=== PATIENT | male | born 1965 | race Caucasian/White ===

== ENCOUNTER 2021-01-25 17:05 | Observation (INO) | payer OTHER ==
[~2021-01-25] VITALS: Ht 188 cm; Wt 86.2 kg
[2021-01-25 19:39] LABS: HEMOGLOBIN 17.2 gm/dl (14.0-17.5); RED BLOOD COUNT 4.72 M/UL (4.20-5.50); WHITE BLOOD COUNT 8.4 K/UL (4.5-11.0)
[2021-01-25 20:08] LABS: BUN/CREATININE RATIO 12 (0-10)
[2021-01-26] MEDS ORDERED: AMLODIPINE BES2.5 MG PO (13:17)
[2021-01-26] MEDS ORDERED: LOPRESSOR 25 MG25 MG PO (13:18)
[2021-01-26] MEDS ORDERED: VENTOLIN HFA 66.7 GM INH (13:19)
[2021-01-26] MEDS ORDERED: CLARITIN 10MG T10 MG PO (13:20)
[2021-01-26] MEDS ORDERED: ASPIRIN EC81 MG PO (13:20)
[2021-01-26] MEDS ORDERED: FLOMAX 0.4 MG0.4 MG PO (13:21)
[2021-01-26] MEDS ORDERED: OMEPRAZOLE20 MG PO (13:21)
[2021-01-26] MEDS ORDERED: FAMOTIDINE20 MG PO (13:21)
[2021-01-26] MEDS ORDERED: NITROGLYCERIN0.4 MG SL (13:22)
[2021-01-26] MEDS ORDERED: FLONASE 0.05% N16 GM (13:22)
[2021-01-26] MEDS ORDERED: SM COMPLETE SE1 EACH PO (13:23)
[2021-01-26 15:31] LABS: HEMOGLOBIN 16.8 gm/dl (14.0-17.5); RED BLOOD COUNT 4.68 M/UL (4.20-5.50); WHITE BLOOD COUNT 6.8 K/UL (4.5-11.0)
[2021-01-26 15:56] LABS: BUN/CREATININE RATIO 15 (0-10)
[2021-01-27 05:53] LABS: HEMOGLOBIN 16.7 gm/dl (14.0-17.5); RED BLOOD COUNT 4.69 M/UL (4.20-5.50); WHITE BLOOD COUNT 6.4 K/UL (4.5-11.0)
[2021-01-27 06:25] LABS: BUN/CREATININE RATIO 14 (0-10)
[2021-01-28 04:34] LABS: BUN/CREATININE RATIO 11 (0-10)
== END 2021-01-28 18:06 | disposition home or self-care (01) ==
LOC: ER1 17:05 → CDU 22:00 → M/S 01-26 09:12
PROVIDERS: Family Medicine; Internal Medicine; Physician Assistant; ADMIT Internal Medicine
PROC: 4A023N7 Measurement of Cardiac Sampling and Pressure, Left Heart, Percutaneous Approach (ICD-10-PCS; principal; 2021-01-27)
PROC: B2111ZZ Fluoroscopy of Multiple Coronary Arteries using Low Osmolar Contrast (ICD-10-PCS; 2021-01-27)
PROC: B2151ZZ Fluoroscopy of Left Heart using Low Osmolar Contrast (ICD-10-PCS; 2021-01-27)
DX: R07.89 Other chest pain (principal); R10.11 Right upper quadrant pain; I10 Essential (primary) hypertension; J44.9 Chronic obstructive pulmonary disease, unspecified; E11.9 Type 2 diabetes mellitus without complications; N20.0 Calculus of kidney; K21.9 Gastro-esophageal reflux disease without esophagitis; N40.0 Benign prostatic hyperplasia without lower urinary tract symptoms; Z85.028 Personal history of other malignant neoplasm of stomach; Z88.8 Allergy status to other drugs, medicaments and biological substances; Z87.891 Personal history of nicotine dependence; Z98.2 Presence of cerebrospinal fluid drainage device; Z79.899 Other long term (current) drug therapy; Z20.822 Contact with and (suspected) exposure to COVID-19
CPT/HCPCS: 36415; 71045; 76705; 78452; 80048; 80053; 80061; 82550; 82553; 83036; 83690; 83874; 84484; 85025; 93005; 93017; 94664; 99152; 99153; 99285; A9502; C1760; C1769; G0378; J0461; J1644; J1885; J2250; J2785; J3010; Q9963; Q9967; U0002

== ENCOUNTER → 2021-02-02 | Day surgery (SDC) | payer OTHER ==
[~2021-02-02] MED LIST: AMLODIPINE BES2.5 MG PO; ASPIRIN EC81 MG PO; CLARITIN 10MG T10 MG PO; FAMOTIDINE20 MG PO; FLOMAX 0.4 MG0.4 MG PO; FLONASE 0.05% N16 GM; LOPRESSOR 25 MG25 MG PO; NITROGLYCERIN0.4 MG SL; OMEPRAZOLE20 MG PO; SM COMPLETE SE1 EACH PO; VENTOLIN HFA 66.7 GM INH
== END | disposition home or self-care (01) ==
LOC: OR 06:54
PROVIDERS: Internal Medicine Gastroenterology
PROC: 0DBK8ZX Excision of Ascending Colon, Via Natural or Artificial Opening Endoscopic, Diagnostic (ICD-10-PCS; 2021-02-02)
PROC: 0DBE8ZX Excision of Large Intestine, Via Natural or Artificial Opening Endoscopic, Diagnostic (ICD-10-PCS; 2021-02-02)
PROC: 0DBP8ZX Excision of Rectum, Via Natural or Artificial Opening Endoscopic, Diagnostic (ICD-10-PCS; 2021-02-02)
PROC: 0DBB8ZX Excision of Ileum, Via Natural or Artificial Opening Endoscopic, Diagnostic (ICD-10-PCS; 2021-02-02)
PROC: 0DB58ZX Excision of Esophagus, Via Natural or Artificial Opening Endoscopic, Diagnostic (ICD-10-PCS; principal; 2021-02-02 09:30)
PROC: 0DB78ZX Excision of Stomach, Pylorus, Via Natural or Artificial Opening Endoscopic, Diagnostic (ICD-10-PCS; 2021-02-02 09:30)
DX: K21.00 Gastro-esophageal reflux disease with esophagitis, without bleeding (principal); K31.89 Other diseases of stomach and duodenum; K63.5 Polyp of colon; K62.1 Rectal polyp; K44.9 Diaphragmatic hernia without obstruction or gangrene; K29.70 Gastritis, unspecified, without bleeding; K57.30 Diverticulosis of large intestine without perforation or abscess without bleeding; K64.0 First degree hemorrhoids; I10 Essential (primary) hypertension; J44.9 Chronic obstructive pulmonary disease, unspecified; M19.90 Unspecified osteoarthritis, unspecified site; E66.3 Overweight; Z68.25 Body mass index [BMI] 25.0-25.9, adult; Z87.891 Personal history of nicotine dependence; Z79.899 Other long term (current) drug therapy; Z79.82 Long term (current) use of aspirin
CPT/HCPCS: J2704; J7040

== ENCOUNTER → 2021-05-28 | Outpatient (CLI) | payer OTHER | LOC: US 13:53 | DX: N50.811 Right testicular pain (principal); N50.3 Cyst of epididymis | CPT/HCPCS: 76870 ==

== ENCOUNTER → 2021-06-02 | Outpatient (CLI) | payer OTHER | LOC: RAD 11:19 | DX: M25.562 Pain in left knee (principal); M54.5 Low back pain; M25.551 Pain in right hip; M47.816 Spondylosis without myelopathy or radiculopathy, lumbar region; M17.12 Unilateral primary osteoarthritis, left knee | CPT/HCPCS: 72100; 73502; 73562 ==

== ENCOUNTER → 2021-07-19 | Outpatient (CLI) | payer OTHER ==
[2021-07-19 14:15] LABS: BUN/CREATININE RATIO 10 (0-10)
== END ==
LOC: LAB 13:01
PROVIDERS: Physician Assistant
DX: I51.9 Heart disease, unspecified (principal); R33.9 Retention of urine, unspecified
CPT/HCPCS: 36415; 80053; 83880

== ENCOUNTER → 2021-07-26 | Outpatient (CLI) | payer OTHER ==
[2021-07-26 10:23] LABS: HEMOGLOBIN 16.6 gm/dl (14.0-17.5); RED BLOOD COUNT 4.67 M/UL (4.20-5.50); WHITE BLOOD COUNT 7.4 K/UL (4.5-11.0)
[2021-07-26 10:46] LABS: BUN/CREATININE RATIO 10 (0-10)
== END ==
LOC: LAB 09:19
PROVIDERS: Physician Assistant
DX: Z01.818 Encounter for other preprocedural examination (principal); I10 Essential (primary) hypertension; R53.83 Other fatigue; N50.811 Right testicular pain; R00.1 Bradycardia, unspecified
CPT/HCPCS: 36415; 80053; 85027; 87086; 93005

== ENCOUNTER → 2021-08-06 | Outpatient (CLI) | payer OTHER ==
[2021-08-06 11:04] LABS: HEMOGLOBIN 15.8 gm/dl (14.0-17.5); RED BLOOD COUNT 4.69 M/UL (4.20-5.50)
[2021-08-06 11:30] LABS: BUN/CREATININE RATIO 14 (0-10)
== END ==
LOC: LAB 10:28
PROVIDERS: Physician Assistant Medical
DX: R73.9 Hyperglycemia, unspecified (principal); R53.83 Other fatigue; I51.9 Heart disease, unspecified
CPT/HCPCS: 36415; 80053; 82607; 83036; 83880; 84443; 85025

== ENCOUNTER → 2021-11-23 | Outpatient (CLI) | payer OTHER ==
[2021-11-23 11:40] LABS: HEMOGLOBIN 16.7 gm/dl (14.0-17.5); RED BLOOD COUNT 4.67 M/UL (4.20-5.50); WHITE BLOOD COUNT 7.8 K/UL (4.5-11.0)
[2021-11-23 12:12] LABS: BUN/CREATININE RATIO 13 (0-10)
== END ==
LOC: LAB 10:27
PROVIDERS: Nurse Practitioner Family
DX: I10 Essential (primary) hypertension (principal)
CPT/HCPCS: 36415; 80053; 80061; 85025

== ENCOUNTER → 2021-12-06 | Outpatient (CLI) | payer OTHER ==
[2021-12-06 16:37] LABS: HEMOGLOBIN 15.5 gm/dl (14.0-17.5); RED BLOOD COUNT 4.44 M/UL (4.20-5.50); WHITE BLOOD COUNT 5.4 K/UL (4.5-11.0)
[2021-12-06 16:57] LABS: BUN/CREATININE RATIO 12 (0-10)
== END ==
LOC: LAB 16:04
PROVIDERS: Physician Assistant Medical
DX: R53.83 Other fatigue (principal)
CPT/HCPCS: 36415; 80053; 82607; 84443; 85025

== ENCOUNTER → 2022-02-16 | Outpatient (CLI) | payer OTHER | LOC: MRI 09:59 | DX: R42 Dizziness and giddiness (principal); R51.9 Headache, unspecified | CPT/HCPCS: 36415; 70553; 82565; 84520; A9577 ==

== ENCOUNTER → 2022-02-24 | Outpatient (CLI) | payer OTHER | LOC: LAB 13:13 | PROVIDERS: Nurse Practitioner Family | DX: I10 Essential (primary) hypertension (principal) | CPT/HCPCS: 36415; 80053; 83735 ==

== ENCOUNTER → 2022-03-07 | Outpatient (CLI) | payer OTHER | LOC: KOH-I 14:09 | DX: I73.9 Peripheral vascular disease, unspecified (principal) | CPT/HCPCS: 93925 ==

== ENCOUNTER → 2022-07-05 | Outpatient (CLI) | payer OTHER | LOC: NM 08:32 | DX: I25.119 Atherosclerotic heart disease of native coronary artery with unspecified angina pectoris (principal); R06.02 Shortness of breath; R07.9 Chest pain, unspecified | CPT/HCPCS: 78452; 93017; A9502; J2785 ==

== ENCOUNTER → 2022-08-03 | Outpatient (CLI) | payer OTHER ==
[2022-08-03 14:19] LABS: HEMOGLOBIN 14.5 gm/dl (14.0-17.5); RED BLOOD COUNT 4.09 M/UL (4.20-5.50)
[2022-08-03 14:59] LABS: BUN/CREATININE RATIO 11 (0-10)
[2022-08-05 07:11] LABS: RHEUMATOID ARTHRITIS FACTOR <10.0 IU/mL (<14.0)
[2022-08-07 21:11] LABS: TESTOSTERONE, SERUM 744 ng/dL (264-916)
== END ==
LOC: LAB 13:24
PROVIDERS: Physician Assistant Medical
DX: Z12.5 Encounter for screening for malignant neoplasm of prostate (principal); I25.10 Atherosclerotic heart disease of native coronary artery without angina pectoris; R53.83 Other fatigue; M25.50 Pain in unspecified joint
CPT/HCPCS: 36415; 80053; 80061; 82607; 84153; 84402; 84403; 84443; 84550; 85025; 85652; 86038; 86200; 86431

== ENCOUNTER → 2022-08-23 | Outpatient (CLI) | payer OTHER | LOC: CT 08-19 15:30 | DX: R42 Dizziness and giddiness (principal); G45.9 Transient cerebral ischemic attack, unspecified | CPT/HCPCS: 70496; 70498; Q9967 ==